=== PATIENT | male | born 1950 | race Caucasian/White ===

== ENCOUNTER → 2017-01-14 | Outpatient (CLI) | payer OTHER, MEDICARE | END | disposition home or self-care (01) | DX: M17.11 Unilateral primary osteoarthritis, right knee (principal); M25.561 Pain in right knee; Z74.1 Need for assistance with personal care | CPT/HCPCS: 97110 GP; 97150 GO; 97161 GP; 97165 GO; G8978 GP; G8979 GP; G8980 GP; G8987 GO; G8988 GO; G8989 GO ==

== ENCOUNTER 2017-02-17 09:20 | Inpatient (IN) | payer OTHER, MEDICARE ==
[~2017-02-17] VITALS: Ht 180.3 cm; Wt 110.9 kg
[~2017-02-17 09:20] MED LIST: ASPIRIN325 MG PO; ATORVASTATIN CA20 MG PO; COENZYME Q10400 MG PO; FUROSEMIDE20 MG PO; LISINOPRIL40 MG PO; MAGNESIUM400 M1 PO; METOPROLOL TART75 MG PO; MULTI-VITAMIN1 EAC4 PO; PLENDIL10 MG PO; PROBIOTIC1 EAC1 PO; VITAMIN C500 M1 PO
[2017-02-17 10:39] VITALS: BP 130/80
[2017-02-17 11:52] LABS: METH RESISTANT S AUREUS PCR NEGATIVE (NEGATIVE); PROBE CHECK PASS; SPECIMEN PROCESSING CONTROL PASS
[2017-02-17 16:54] VITALS: BP 150/83
[2017-02-17 18:56] VITALS: BP 140/78
[2017-02-18 00:12] VITALS: BP 146/85
[2017-02-18 04:23] VITALS: BP 140/876
[2017-02-18 06:32] LABS: HEMATOCRIT 41.2 % (38.0-50.0); MCV 93.4 FL (86-99)
[2017-02-18 07:04] LABS: ANION GAP 8 MEQ/L (2-14); CHLORIDE 105 MEQ/L (99-109); GFR ESTIMATE (CALCULATED) > 59 mL/min/; GLUCOSE 135 mg/dL (70-99); POTASSIUM 4.3 MEQ/L (3.7-5.4); SAMPLE HEMOLYSIS CHECK 0; SAMPLE ICTERIC CHECK 0; SAMPLE LIPEMIA CHECK 0; SODIUM 139 MEQ/L (136-147); UREA NITROGEN (BUN) 21 mg/dL (9-23)
[2017-02-18 07:13] LABS: INTER. NORMALIZED RATIO 1.1; PROTHROMBIN TIME 11.2 (9.2-11.2)
[2017-02-18 08:36] VITALS: BP 165/92
[2017-02-18 11:54] VITALS: BP 157/83
[2017-02-18 15:45] VITALS: BP 139/70
[2017-02-18 20:02] VITALS: BP 136/80
[2017-02-19 00:13] VITALS: BP 101/61
[2017-02-19 04:08] VITALS: BP 105/63
[2017-02-19 05:55] LABS: HEMATOCRIT 37.5 % (38.0-50.0); MCV 93.1 FL (86-99)
[2017-02-19 06:11] LABS: INTER. NORMALIZED RATIO 1.2; PROTHROMBIN TIME 12.6 (9.2-11.2)
[2017-02-19 06:17] LABS: ANION GAP 7 MEQ/L (2-14); CHLORIDE 102 MEQ/L (99-109); GFR ESTIMATE (CALCULATED) > 59 mL/min/; GLUCOSE 130 mg/dL (70-99); POTASSIUM 4.4 MEQ/L (3.7-5.4); SAMPLE HEMOLYSIS CHECK 1; SAMPLE ICTERIC CHECK 0; SAMPLE LIPEMIA CHECK 0; SODIUM 134 MEQ/L (136-147); UREA NITROGEN (BUN) 24 mg/dL (9-23)
[2017-02-19] MEDS ORDERED: DOCUSATE SODIU100 MG PO (07:49)
[2017-02-19] MEDS ORDERED: ENDOCET 5-3251 EACH PO (07:49)
[2017-02-19] MEDS ORDERED: COUMADIN2.5 MG PO (07:49)
[2017-02-19] MEDS ORDERED: CELECOXIB200 MG PO (07:49)
[2017-02-19 08:00] VITALS: BP 130/69
[2017-02-19 12:20] VITALS: BP 122/64
[2017-02-19 16:00] VITALS: BP 132/68
== END 2017-02-19 16:14 | DRG 470 ==
LOC: 2SOUTH 09:20 → 3WEST 16:32
PROVIDERS: Orthopaedic Surgery; Physician Assistant
PROC: 0SRC0J9 Replacement of Right Knee Joint with Synthetic Substitute, Cemented, Open Approach (ICD-10-PCS; principal; 2017-02-17)
DX: M17.11 Unilateral primary osteoarthritis, right knee (principal); E78.00 Pure hypercholesterolemia, unspecified; I10 Essential (primary) hypertension; E78.5 Hyperlipidemia, unspecified; I25.10 Atherosclerotic heart disease of native coronary artery without angina pectoris; E66.9 Obesity, unspecified; Z68.36 Body mass index [BMI] 36.0-36.9, adult; Z98.61 Coronary angioplasty status
CPT/HCPCS: 80048; 85014; 85018; 85610; 87641; 94799; C1713; J0131; J0690; J1100; J1885; J2250; J2405; J2704; J3010; J7050; J7120; S0020